=== PATIENT | male | born 1960 | race Caucasian/White ===

== ENCOUNTER 2023-07-29 13:05 | Day surgery (SDC) | payer OTHER ==
[~2023-07-29 13:05] MED LIST: Lactated Ringers 1,000 ML IV SCH
[2023-07-29] MEDS ORDERED: Lactated Ringers 1,000 ML IV ONE ×2 (13:25→14:42)
[2023-07-29 13:27] VITALS: RESP 16
[2023-07-29] MEDS ORDERED: Xylocaine-Mpf 2% 5 Ml Vial ONE (14:35)
[2023-07-29] MEDS ORDERED: DIPRIVAN 200 MG/20 ML IV ONE ×3 (14:36→15:05)
[2023-07-29] MEDS ORDERED: Versed 2 MG/2 ML Injection ONE (14:39)
[2023-07-29] MEDS ORDERED: Ephedrine Sulfate 50 MG/ML ONE (15:02)
[2023-07-29] MEDS ORDERED: ATROPINE SULFATE 1MG ONE (15:02)
[2023-07-29 16:02] VITALS: TEMP 96.9
[2023-07-29 16:28] VITALS: BP 125/82; PULSE 54; O2SAT 94
--- NOTE | 2023-09-03 09:36 | OP ---
PROCEDURE DATE/TIME: 07/29/2023 1442 PREOPERATIVE DIAGNOSES: Upper and mid abdominal pain and due for screening colonoscopy. POSTOPERATIVE DIAGNOSES: 1) Hiatal hernia. 2) Reflux. 3) Gastritis. 4) Colon polyp. 5) Diverticulosis. PROCEDURES: 1) EGD with biopsy. 2) Colonoscopy with cold snare polypectomy. PROCEDURE PERFORMED BY: Phyllis Neal M.D. ANESTHESIA: MAC. ESTIMATED BLOOD LOSS: Minimal. COMPLICATIONS: None. SPECIMENS: 1) Antral biopsy. 2) Distal esophagus biopsy. 3) Distal descending polyp. HISTORY: This is a patient who presents with upper abdominal symptoms for EGD and also is due for a screening colonoscopy. All risks, benefits, alternatives to the procedure were discussed with him. He understands and agrees and wants to proceed. He was seen in the preoperative area and all questions answered. Consent and H&P confirmed. DESCRIPTION OF PROCEDURE: He was then brought back to the endoscopy suite and laid in the left lateral decubitus position. A complete time out was performed. First, the scope was inserted into the mouth, oropharynx, down into the esophagus, stomach and duodenum. The visualized portion of the duodenum was normal. In the stomach, the patient does have some gastritis with multiple small erosions. He also had what appears to be a small hiatal hernia and the bulb of his duodenum has a very mild amount of duodenitis but the remainder appears to be normal. I took antral biopsies to rule out Helicobacter pylori. We then carefully withdrew the scope back into the distal esophagus. His gastroesophageal junction is at 41 cm. He has a small hiatal hernia that is re-visualized and he also has reflux changes that are suspicious for possible short segment Hurley's disease. I took multiple biopsies and sent these to pathology as well. The remainder of the esophagus was normal. The patient tolerated the procedure very well. There were no immediate complications. I then turned my attention to the colonoscopy. First, I did a rectal exam. The scope was then inserted and gently advanced to the level of the cecum. The cecum was well visualized with appendiceal orifice and the ileocecal valve identified. The prep was satisfactory. The scope was then carefully withdrawn taking a circumferential view. The patient had a mild amount diverticulosis on the sigmoid colon. He also had one descending colon polyp identified that was 3 to 4 mm taken in entirety with cold snare and retrieved with cold forceps and then sent to pathology. Other than that the remainder of the colonoscopy was normal. Both procedures we will await his pathology results. I have discussed all of his results with his family in the postoperative area including an anti-reflux diet and lifestyle. Our tentative plan will be for EGD possibly in two years pending the final pathology possible PRN and then also for colonoscopy in approximately seven years due to the finding of one polyp and satisfactory prep but we will await the final result. The patient understands and he will be following up with me as an outpatient.
== END 2023-07-29 16:33 | disposition home or self-care (01) ==
LOC: SDC 13:05
PROVIDERS: ATTEND Surgery
DX: Z12.11 Encounter for screening for malignant neoplasm of colon (principal); K57.30 Diverticulosis of large intestine without perforation or abscess without bleeding; R10.10 Upper abdominal pain, unspecified; K44.9 Diaphragmatic hernia without obstruction or gangrene; K21.9 Gastro-esophageal reflux disease without esophagitis; K29.70 Gastritis, unspecified, without bleeding; K63.5 Polyp of colon
CPT/HCPCS: 88305; 88312; 93005; J0461; J2250; J2704

== ENCOUNTER 2025-09-08 12:57 | Day surgery (SDC) | payer OTHER ==
[2025-09-08] MEDS ORDERED: methylPREDNISolone acetate IM ONE (12:58)
[2025-09-08] MEDS ORDERED: LIDOCAINE HCL 1% 50 MG/5 ML VL IJ ONE (12:58)
[2025-09-08] MEDS ORDERED: Sodium Chloride 0.9(Preservative Free) 10 ML IJ ONE (12:58)
[2025-09-08] MEDS ORDERED: propofoL IV ONE (15:14)
[2025-09-08] MEDS ORDERED: Lactated Ringers 1,000 ML IV ONE (15:29)
--- NOTE | 2025-09-08 16:49 | XRAY ---
19 seconds of fluoroscopy was used in surgery for a lumbar HEBERT.
--- NOTE | 2025-09-08 16:49 | XRAY ---
Indication: Lumbar HEBERT. Intraoperative fluoroscopy provided for 19 seconds. 2 digital spot image submitted for interpretation demonstrates posterior needle tip projecting posterior to lumbosacral junction. Small amount of contrast injected for needle tip placement. Correlate with intraoperative findings/report.
== END 2025-09-08 15:51 | disposition home or self-care (01) ==
LOC: SDC-PAIN 12:57
PROVIDERS: ATTEND Psychiatry & Neurology Pain Medicine
DX: M54.16 Radiculopathy, lumbar region (principal)